=== PATIENT | male | born 1990 | race Caucasian/White ===

== ENCOUNTER 2016-12-11 08:52 | Emergency (ER) | payer BC, MEDICAID ==
--- NOTE | 2016-12-11 09:32 | EDM.PDOC ---
ED HPI GENERAL MEDICAL PROBLEM - General Chief Complaint: Drug or Alcohol Abuse Stated Complaint: CHEST PRESSURE Time Seen by Provider: 12/11/16 09:20 Source of Information: Reports: Patient, Old records History Limitations: Reports: No limitations - History of Present Illness INITIAL COMMENTS - FREE TEXT/NARRATIVE: 26 yo male presents with concerns that his heart is not beating normally. Denies any chest pains for me. Used meth last night, and has used this in the past many times as well. Was dizzy with standing and his urine was dark yellow this morning. 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) - Related Data Allergies Allergy/AdvReac Type Severity Reaction Status Date / Time No Known Allergies Allergy Verified 11/03/16 08:29 Home Meds: Home Meds ClonazePAM [KlonoPIN] 1 mg PO TID PRN 01/27/16 [History] FLUoxetine [PROzac] 20 mg PO DAILY 02/29/16 [History] Propranolol [Inderal LA] 120 mg PO DAILY 06/07/16 [History] Past Medical History - Past Health History Medical/Surgical History: Denies Medical/Surgical History HEENT History: Reports: Impaired vision Cardiovascular History: Reports: Heart murmur, Hypertension, Other (see below) Other Cardiovascular History: states has occ PVC's.; states that he was diagnosed having heart valve prolapse; LBBB Respiratory History: Reports: None Gastrointestinal History: Reports: None Genitourinary History: Reports: None Musculoskeletal History: Reports: None Neurological History: Reports: None Psychiatric History: Reports: Addiction, Anxiety, Depression, Panic attack, Psych Hospitalization(s) Endocrine/Metabolic History: Reports: None Hematologic History: Reports: None Immunologic History: Reports: None Oncologic (Cancer) History: Reports: None Dermatologic History: Reports: Other (see below) Other Dermatologic History: acne - Infectious Disease History Infectious Disease History: Reports: None - Past Surgical History Head Surgeries/Procedures: Reports: None Social & Family History - Family History Family Medical History: Noncontributory - Tobacco Use Smoking Status *Q: Current Some Day Smoker Years of Tobacco use: 7 Packs/Tins Daily: 0.1 - Caffeine Use Caffeine Use: Reports: Soda - Recreational Drug Use Recreational Drug Use: Yes Drug Use in Last 12 Months: No Recreational Drug Type: Reports: Amphetamines (Speed) Recreational Drug Use Frequency: Weekly ED ROS GENERAL - Review of Systems Review Of Systems: See Below Constitutional: Reports: no symptoms HEENT: Reports: No symptoms Respiratory: Reports: No Symptoms Cardiovascular: Reports: Other ("heart not beating right") GI/Abdominal: Reports: No symptoms : Reports: other (urine dark) Musculoskeletal: Reports: no symptoms Skin: Reports: no symptoms Neurological: Reports: No Symptoms Psychiatric: Reports: No symptoms ED EXAM, GENERAL - Physical Exam Exam: See Below Exam Limited By: No limitations General Appearance: alert, WD/WN, no apparent distress Eye Exam: bilateral eye: normal inspection, PERRL Ears: normal external exam, normal canal, hearing grossly normal, normal TMs Ear Exam: right ear: auricle normal, bilateral ear: canal normal, TM normal Nose: normal inspection, normal mucosa, no blood Throat/Mouth: Normal inspection, Normal lips, Normal teeth Head: atraumatic, normocephalic Neck: normal inspection, supple, non-tender Respiratory/Chest: no respiratory distress, lungs clear, normal breath sounds Cardiovascular: regular rate, rhythm, no edema GI/Abdominal: soft, non tender, no organomegaly, no distention Back Exam: normal inspection Extremities: normal inspection, normal range of motion, non-tender, no pedal edema Neurological: alert, oriented, CN II-XII intact, normal cognition, no motor/ sensory deficits Psychiatric: normal affect, normal mood Skin Exam: Warm, Dry, Intact, Normal color, No rash Lymphatic: no adenopathy Course - Vital Signs Text/Narrative:: pvc monitor: NSR without ectopy, HR in the upper 70's Last Recorded V/S: Last Vital Signs Temp 36.6 C 12/11/16 08:55 Pulse 78 12/11/16 08:55 Resp 18 12/11/16 08:55 BP 153/90 H 12/11/16 08:55 Pulse Ox 96 12/11/16 08:55 Departure - Departure Time of Disposition: 09:37 Disposition: Home, Self-Care 01 Condition: good Clinical Impression: Methamphetamine use HTN (hypertension) Qualifiers: Hypertension type: other secondary hypertension Qualified Code(s): I15.8 - Other secondary hypertension Referrals: Pelon Daniels MD [Primary Care Provider] - Forms: ED Department Discharge Additional Instructions: No methamphetamine use. F/U in the clinic if you have concerns or questions. Drink enough fluids so your urine is light in color. BP should be 120/80 range.
== END 2016-12-11 09:40 | disposition home or self-care (01) ==
LOC: FB.ED 08:52
CPT/HCPCS: 99284

== ENCOUNTER 2016-12-11 15:49 | Emergency (ER) | payer BC, MEDICAID ==
--- NOTE | 2016-12-11 16:12 | EDM.PDOC ---
ED HISTORY OF PRESENT ILLNESS - General Stated Complaint: WEAKNESS, BLOOD FLOW - Related Data Allergies/ADRs: Allergies Allergy/AdvReac Type Severity Reaction Status Date / Time No Known Allergies Allergy Verified 11/03/16 08:29 Home Meds: Home Meds ClonazePAM [KlonoPIN] 1 mg PO TID PRN 01/27/16 [History] FLUoxetine [PROzac] 20 mg PO DAILY 02/29/16 [History] Propranolol [Inderal LA] 120 mg PO DAILY 06/07/16 [History] Past Medical History - Past Health History Medical/Surgical History: Denies Medical/Surgical History HEENT History: Reports: Impaired vision Cardiovascular History: Reports: Heart murmur, Hypertension, Other (see below) Other Cardiovascular History: states has occ PVC's.; states that he was diagnosed having heart valve prolapse; LBBB Respiratory History: Reports: None Gastrointestinal History: Reports: None Genitourinary History: Reports: None Musculoskeletal History: Reports: None Neurological History: Reports: None Psychiatric History: Reports: Addiction, Anxiety, Depression, Panic attack, Psych Hospitalization(s) Endocrine/Metabolic History: Reports: None Hematologic History: Reports: None Immunologic History: Reports: None Oncologic (Cancer) History: Reports: None Dermatologic History: Reports: Other (see below) Other Dermatologic History: acne - Infectious Disease History Infectious Disease History: Reports: None - Past Surgical History Head Surgeries/Procedures: Reports: None Social & Family History - Family History Family Medical History: Noncontributory - Tobacco Use Smoking Status *Q: Current Some Day Smoker Years of Tobacco use: 7 Packs/Tins Daily: 0.1 - Caffeine Use Caffeine Use: Reports: Soda - Recreational Drug Use Recreational Drug Use: Yes Drug Use in Last 12 Months: No Recreational Drug Type: Reports: Amphetamines (Speed) Recreational Drug Use Frequency: Weekly EKG INTERPRETATION EKG Date: 12/11/16 Time: 16:05 Rhythm: NSR Rate (beats/min): 72 [place]: normal P-wave: present QRS: normal ST-T: normal QT: normal Comparison: no change Course - Orders/Labs/Meds Orders: Active Orders 24 hr Category Date Time Status EKG Documentation Completion [RC] ASDIRECTED Care 12/11/16 15:54 Active EKG 12 Lead [EK] Routine Ther 12/11/16 15:53 Ordered - My Orders Last 24 Hours: My Active Orders 12/11/16 15:53 EKG 12 Lead [EK] Routine 12/11/16 15:54 EKG Documentation Completion [RC] ASDIRECTED - Assessment/Plan Last 24 Hours: My Active Orders 12/11/16 15:53 EKG 12 Lead [EK] Routine 12/11/16 15:54 EKG Documentation Completion [RC] ASDIRECTED
[2016-12-11 17:37] VITALS: BP 120/73
== END 2016-12-11 16:15 | disposition left against medical advice (07) ==
LOC: FB.ED 15:49
DX: R53.1 Weakness (principal); F15.90 Other stimulant use, unspecified, uncomplicated; I15.8 Other secondary hypertension; R01.1 Cardiac murmur, unspecified; F32.9 Major depressive disorder, single episode, unspecified; F41.9 Anxiety disorder, unspecified; Z79.899 Other long term (current) drug therapy; Z53.21 Procedure and treatment not carried out due to patient leaving prior to being seen by health care provider
CPT/HCPCS: 93005; 99284

== ENCOUNTER 2016-12-15 11:41 | Emergency (ER) | payer BC, MEDICAID ==
[2016-12-15 15:30] VITALS: BP 116/67
--- NOTE | 2016-12-16 03:34 | ER ---
DATE SEEN: 12/15/2016 TIME SEEN: The patient was seen 15 minutes after arrival at 1204. HISTORY OF PRESENT ILLNESS: This 26-year-old noted he took 1 g of methamphetamine last night and was up all night with intermittent chest pain, diaphoresis, felt lightheaded, and feels a fullness in his chest. Feels like the chambers are not normal, they have been filled too much and feels like his lung is filling up with fluid. Denies headache, compromise in vision, or weakness. This is the second time I have seen him for the use of methamphetamine. He used other drugs extensively in the past. I have seen him on numerous occasions. Our staff note that his drug use is more extensive than he claims. He related to the nurse that he has used drugs daily. PHYSICAL EXAMINATION: VITAL SIGNS: Blood pressure 145/52, heart rate in the 90s, respirations 18, and temperature is 98.1. Repeat blood pressure 97/81. GENERAL: A tall mildly overweight fellow who is not particularly anxious, but is slightly weary of my conversation and what is going on. In fact, he feels he is having an out of body experience with his heart being high in his chest and also fullness in his lungs, feels like it is "filling up with fluid." HEENT: PERRLA intact. Pupils do react. TMs negative. Mildly dilated, 2.5 to 3 mm. Hearing intact. Pharynx without abnormality. LUNGS: Clear to auscultation without rales. HEART: S1, S2. No murmur. ABDOMEN: Soft. No guarding. No abdominal discomfort. EXTREMITIES: Without abnormality. DERMIS: Negative. No evidence for needle chase. LABORATORY DATA: EKG: There is a change in the EKG from the previous one. One was performed on 12/11/2016. This has a true flat ST on lead II. Today, there is up-coving which is more abnormal on V2 today. CO interval slightly short at 112; on last visit it was 111. Noted RSR prime V1 and V2 on 12/11/2016. On review of this EKG on 12/11/2016, there is RSR prime. There is no ST elevation today. He has an isoelectric T-wave in lead III that was absent on 12/11/2016. Chemical abuse history. Troponin less than 0.01. Total bilirubin 2.6. Glucose 120. Hemoglobin 17.9, hematocrit 53; both are elevated. Platelets 205,000, PMNs 62, lymphs 28, and monos 8. RDW slow at 11.2. ASSESSMENT: 1. Possible hepatitis with elevated bilirubin. The liver enzymes were not elevated. Alkaline phosphatase is not elevated, it is 54, it is low. 2. Abnormal EKG with today borderline CO short interval of 112 microseconds. 3. Flattened T-waves, isoelectric in lead III. No ST elevation today. The patient has a right bundle-branch block. On 12/11/2016, he had an ST elevation in lead III. Today, he no longer has the T-wave inversion on V1, but on 12/11/2016 had a large T-wave inversion in V1. 4. Drug abuse. 5. Panic attacks. The patient to continue his medicine. No changes in his medicine. Follow up with doctor in a week or earlier if worse. Also, he is to get a psychiatric consult. Needs to be arranged with either [facility], but he says he "wants to do this on his own." I am not sure what this means. That may mean he is not planning on doing anything. I am not hopeful of the outcome and I am not hopeful about the chronic recurrent use of these drugs and what they are going to do to his system, as he is at risk for myocardial infarction if he continues to escalate his drug use. /[id number] TIBURCIO CABEZAS
--- NOTE | 2017-01-07 09:14 | ER ---
DATE SEEN: 12/15/2016 ADDENDUM: History significant for chemical abuse. REVIEW OF SYSTEMS: HEENT, CARDIORESPIRATORY, GI, : Negative. MUSCULOSKELETAL: Negative. PSYCHIATRIC: Significant for depression, intermittent drug abuse, and panic attacks. PAST MEDICAL HISTORY: No diabetes, heart disease, high blood pressure, serious injuries or surgeries. /[id number] LEIDY/CHRISTIAN
== END 2016-12-15 13:10 | disposition home or self-care (01) ==
LOC: FB.ED 11:41
DX: F15.10 Other stimulant abuse, uncomplicated (principal); F41.0 Panic disorder [episodic paroxysmal anxiety]; R94.31 Abnormal electrocardiogram [ECG] [EKG]
CPT/HCPCS: 36415; 80053; 84484; 85025; 93005; 99285

== ENCOUNTER 2016-12-16 04:02 | Emergency (ER) | payer BC, MEDICAID ==
[2016-12-16] MEDS ORDERED: LORazepam 2 MG/ML MDV IVPUSH ONE (04:25)
[2016-12-16] MEDS ORDERED: HYDROmorphone 2 MG/ML SDV IVPUSH ONE (04:26)
--- NOTE | 2016-12-16 05:38 | EDM.PDOC ---
ED HPI NEURO - General Chief Complaint: Behavioral/Psych Stated Complaint: CHEST PRESSURE Time Seen by Provider: 12/16/16 05:00 Source: Reports: Patient, Old records History Limitations: Reports: No limitations - History of Present Illness INITIAL COMMENTS - FREE TEXT/NARRATIVE: 26 yo male with chest pressure and recurrent methamphetamine use. Is anxious. Has been here several times in recent weeks. 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) - Related Data Allergies/ADRs: Allergies Allergy/AdvReac Type Severity Reaction Status Date / Time No Known Allergies Allergy Verified 12/15/16 15:27 Home Meds: Home Meds ClonazePAM [KlonoPIN] 1 mg PO TID PRN 01/27/16 [History] FLUoxetine [PROzac] 20 mg PO DAILY 02/29/16 [History] Propranolol [Inderal LA] 120 mg PO DAILY 06/07/16 [History] Past Medical History - Past Health History Medical/Surgical History: Denies Medical/Surgical History HEENT History: Reports: Impaired vision Cardiovascular History: Reports: Heart murmur, Hypertension, Other (see below) Other Cardiovascular History: states has occ PVC's.; states that he was diagnosed having heart valve prolapse; LBBB Respiratory History: Reports: None Gastrointestinal History: Reports: None Genitourinary History: Reports: None Musculoskeletal History: Reports: None Neurological History: Reports: None Psychiatric History: Reports: Addiction, Anxiety, Depression, Panic attack, Psych Hospitalization(s) Endocrine/Metabolic History: Reports: None Hematologic History: Reports: None Immunologic History: Reports: None Oncologic (Cancer) History: Reports: None Dermatologic History: Reports: Other (see below) Other Dermatologic History: acne - Infectious Disease History Infectious Disease History: Reports: None - Past Surgical History Head Surgeries/Procedures: Reports: None Social & Family History - Family History Family Medical History: Noncontributory - Tobacco Use Smoking Status *Q: Current Some Day Smoker Years of Tobacco use: 10 Packs/Tins Daily: 0 - Caffeine Use Caffeine Use: Reports: Soda - Recreational Drug Use Recreational Drug Use: Yes Drug Use in Last 12 Months: Yes Recreational Drug Type: Reports: Methamphetamine Recreational Drug Use Frequency: Daily ED ROS GENERAL - Review of Systems Review Of Systems: See Below Constitutional: Reports: no symptoms HEENT: Reports: No symptoms Respiratory: Reports: No Symptoms Cardiovascular: Reports: No symptoms Endocrine: Reports: no symptoms GI/Abdominal: Reports: No symptoms : Reports: no symptoms Musculoskeletal: Reports: no symptoms Skin: Reports: no symptoms Neurological: Reports: No Symptoms Psychiatric: Reports: Anxiety ED EXAM, NEURO - Physical Exam Exam: See Below Exam Limited By: No limitations General Appearance: alert, WD/WN, no apparent distress Eye Exam: bilateral eye: normal inspection Ears: normal external exam, normal canal, hearing grossly normal, normal TMs Nose: normal inspection, normal mucosa, no blood Throat/Mouth: Normal inspection, Normal lips, Normal teeth, Normal oropharynx, Normal voice, No airway compromise Head Exam: atraumatic, normocephalic Neck: normal inspection, supple, non-tender Respiratory/Chest: no respiratory distress, lungs clear, normal breath sounds, no accessory muscle use Cardiovascular: regular rate, rhythm, no edema GI/Abdominal: normal bowel sounds, soft, non tender, no distention Neurological: alert, normal mood/affect, normal dorsiflexion, CN II-XII intact, normal plantar flexion, normal gait, no motor/sensory deficits, oriented x 3 Back Exam: normal inspection Extremities: normal inspection, normal range of motion, non-tender, no pedal edema, normal capillary refill Psychiatric: anxious Skin Exam: Warm, Dry, Intact, Normal color, No rash EKG INTERPRETATION EKG Date: 12/16/16 Time: 05:35 Rhythm: NSR Rate (beats/min): 78 [place]: normal P-wave: present QRS: normal ST-T: normal QT: normal Comparison: no change Course - Vital Signs Text/Narrative:: Was offered detox/drug treatment-declined. Last Recorded V/S: Last Vital Signs Temp 36.9 C 12/16/16 06:38 Pulse 82 12/16/16 06:38 Resp 18 12/16/16 06:38 BP 162/91 H 12/16/16 06:38 Pulse Ox 100 12/16/16 06:38 - Orders/Labs/Meds Orders: Active Orders 24 hr Category Date Time Status EKG Documentation Completion [RC] ASDIRECTED Care 12/16/16 05:16 Active EKG 12 Lead [EK] Routine Ther 12/16/16 05:15 Ordered Labs: Laboratory Tests 12/16/16 12/16/16 Range/Units 05:25 05:43 Troponin I < 0.01 L (0.02-0.06) NG/ML Urine Opiates Screen Negative (NEGATIVE) Ur Oxycodone Screen Negative (NEGATIVE) Ur Propoxyphene Screen Negative (NEGATIVE) Ur Barbituates Screen Negative (NEGATIVE) Ur Tricyclics Screen Negative (NEGATIVE) Ur Phencyclidine Scrn Negative (NEGATIVE) Ur Amphetamine Screen Positive H (NEGATIVE) Urine MDMA Screen Positive H (NEGATIVE) U Benzodiazepines Scrn Negative (NEGATIVE) U Cocaine Metab Screen Negative (NEGATIVE) U Marijuana (THC) Screen Negative (NEGATIVE) Departure - Departure Time of Disposition: 06:58 Disposition: Home, Self-Care 01 Condition: fair Clinical Impression: Methamphetamine abuse, Anxiety Forms: ED Department Discharge - My Orders Last 24 Hours: My Active Orders 12/16/16 05:15 EKG 12 Lead [EK] Routine 12/16/16 05:16 EKG Documentation Completion [RC] ASDIRECTED - Assessment/Plan Last 24 Hours: My Active Orders 12/16/16 05:15 EKG 12 Lead [EK] Routine 12/16/16 05:16 EKG Documentation Completion [RC] ASDIRECTED
[2016-12-16 06:39] VITALS: BP 162/91
== END 2016-12-16 07:47 | disposition home or self-care (01) ==
LOC: FB.ED 04:02
DX: F41.9 Anxiety disorder, unspecified (principal); F15.10 Other stimulant abuse, uncomplicated; F32.9 Major depressive disorder, single episode, unspecified; I10 Essential (primary) hypertension
CPT/HCPCS: 36415; 80305; 84484; 93005; 99283

== ENCOUNTER 2016-12-18 12:21 | Emergency (ER) | payer BC, MEDICAID ==
--- NOTE | 2016-12-18 13:26 | EDM.PDOC ---
ED HPI GENERAL MEDICAL PROBLEM - General Chief Complaint: General Stated Complaint: DISORIENTED Time Seen by Provider: 12/18/16 12:50 Source of Information: Reports: Patient History Limitations: Reports: No limitations - History of Present Illness INITIAL COMMENTS - FREE TEXT/NARRATIVE: c/o anxiety long litany of c/o around his anxiety, has been seen multiple times in ED and advised to see his PCP Dr Mcpherson, each time he has refused as he did today, he said "if you tell me I'm fine, then I'm fine". I said "no, you are not fine" . I explained why he needed to see his PCP regarding his chronic health issues ( anxiety, PA, somatization, substance use). Each time he refused and said he would not. He said he did not dislike his PCP, just that he saw no need regardless of what I or any other ED doc recommended. Yet, he says he could not sleep last 3 nights d/t his anxiety. He has stopped his clonidine 2d ago ("because my SBP was 90) even though I explained that it is fine today. He stopped his propanolol 2d ago. He has continued his Prozac 20 mg daily which he says is the only thing that has calmed his anxiety enough to let him leave his house. 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 I explained that his PCP could adjust his meds to better help his anxiety, including increasing his Prozac if needed. He still refused to see PCP. last used meth 2d ago, says he is "a user but not addicted", that he smoked 2 ppd and now smokes 2 cigs/d, I explained that he was addicted and that his sxs today are in part d/t his substance use, pt disagreed drinks alc 1x/wk, no THC, has used other drugs in the past but would not tell me what they are sxs are his anxiety and insomnia, no clearcut efrain, no SI/HI - Related Data Allergies Allergy/AdvReac Type Severity Reaction Status Date / Time No Known Allergies Allergy Verified 12/18/16 12:36 Home Meds: Home Meds ClonazePAM [KlonoPIN] 1 mg PO TID PRN 01/27/16 [History] FLUoxetine [PROzac] 20 mg PO DAILY 02/29/16 [History] Propranolol [Inderal LA] 120 mg PO DAILY 06/07/16 [History] Past Medical History - Past Health History Medical/Surgical History: Denies Medical/Surgical History HEENT History: Reports: Impaired vision Cardiovascular History: Reports: Heart murmur, Hypertension, Other (see below) Other Cardiovascular History: states has occ PVC's.; states that he was diagnosed having heart valve prolapse; LBBB Respiratory History: Reports: None Gastrointestinal History: Reports: None Genitourinary History: Reports: None Musculoskeletal History: Reports: None Neurological History: Reports: None Psychiatric History: Reports: Addiction, Anxiety, Depression, Panic attack, Psych Hospitalization(s) Endocrine/Metabolic History: Reports: None Hematologic History: Reports: None Immunologic History: Reports: None Oncologic (Cancer) History: Reports: None Dermatologic History: Reports: Other (see below) Other Dermatologic History: acne - Infectious Disease History Infectious Disease History: Reports: None - Past Surgical History Head Surgeries/Procedures: Reports: None Social & Family History - Family History Family Medical History: Noncontributory - Tobacco Use Smoking Status *Q: Current Some Day Smoker Years of Tobacco use: 2 Packs/Tins Daily: 0 Tobacco Use Comment: smokes a few cigarettes a week Second Hand Smoke Exposure: No - Caffeine Use Caffeine Use: Reports: Soda - Recreational Drug Use Recreational Drug Use: Yes Drug Use in Last 12 Months: Yes Recreational Drug Type: Reports: Methamphetamine Recreational Drug Use Frequency: Daily ED ROS GENERAL - Review of Systems Review Of Systems: See Below Constitutional: Reports: other (insomnia) HEENT: Reports: No symptoms Respiratory: Reports: No Symptoms Cardiovascular: Reports: No symptoms Endocrine: Reports: no symptoms GI/Abdominal: Reports: No symptoms : Reports: no symptoms Musculoskeletal: Reports: no symptoms Skin: Reports: no symptoms Neurological: Reports: No Symptoms Psychiatric: Reports: Anxiety Hematologic/Lymphatic: Reports: no symptoms Immunologic: Reports: no symptoms ED EXAM, GENERAL - Physical Exam Exam: See Below Exam Limited By: No limitations General Appearance: alert, WD/WN, anxious Eye Exam: bilateral eye: EOMI Ears: normal external exam, hearing grossly normal Nose: normal inspection, normal mucosa, no blood Throat/Mouth: Normal inspection, Normal lips, Normal teeth, Normal gums, Normal oropharynx, Normal voice, No airway compromise Head: atraumatic, normocephalic Neck: normal inspection, supple, non-tender, full range of motion Respiratory/Chest: no respiratory distress, lungs clear, normal breath sounds, no accessory muscle use, chest non-tender Cardiovascular: normal peripheral pulses, regular rate, rhythm, no edema, no gallop, no murmur, no rub GI/Abdominal: soft, non tender Back Exam: normal inspection, full range of motion, NT Extremities: normal inspection, normal range of motion, non-tender, normal capillary refill, no pedal edema Neurological: alert, oriented, CN II-XII intact, normal reflexes, no motor/ sensory deficits, other (1+ bicep and BR DTRs, no gross tremor) Psychiatric: anxious Skin Exam: Warm, Dry, Intact, Normal color, No rash Lymphatic: no adenopathy Course - Vital Signs Last Recorded V/S: Last Vital Signs Temp 37.1 C 12/18/16 12:47 Pulse 80 12/18/16 12:47 Resp 18 12/18/16 12:47 BP 135/88 12/18/16 12:47 Pulse Ox 100 12/18/16 12:47 Departure - Departure Time of Disposition: 13:28 Disposition: DC/Tfer to [facility] Condition: fair Clinical Impression: Anxiety, Panic attack, Methamphetamine abuse, Noncompliance with medications Forms: ED Department Discharge Additional Instructions: Take your clonidine, propranolol and Prozac as prescribed. Eat 3 meals a day. Get regular sleep at night. Do not use methamphetamine or other street drugs. See Dr Mcpherson in 2 days. Do not put off seeing Dr Mcpherson. Call your Physician or Return to Emergency Department if: * Your condition worsens in any way. * You develop fever greater than 100.4. * You have vomitting that does not stop with medications. * You have pain that is not controlled with medications.
== END 2016-12-18 13:35 | disposition home or self-care (01) ==
LOC: FB.ED 12:21
CPT/HCPCS: 99283

== ENCOUNTER 2017-01-06 23:13 | Emergency (ER) | payer BC ==
--- NOTE | 2017-01-07 | EDM.PDOC ---
ED HPI Skin/Rash - General Chief Complaint: Skin Complaint Stated Complaint: POSS BLOOD CLOT Time Seen by Provider: 01/06/17 23:45 Source: Reports: Patient History Limitations: Reports: No limitations - History of Present Illness INITIAL COMMENTS - FREE TEXT/NARRATIVE: 26 yo male regular methamphetamine user presents with bruising he noticed to his R lateral leg earlier today. Did not see his provider, but decided tonight these may represent "blood clots" since he had sat around all day today. Last used meth yesterday. Symptom Onset Date: 01/06/17 (noticed the bruises today, may have been there longer. 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: Other (see below) (none) - Related Data Allergies Allergy/AdvReac Type Severity Reaction Status Date / Time No Known Allergies Allergy Verified 12/18/16 12:36 Home Meds: Ambulatory Orders Medication Instructions Recorded Confirmed ClonazePAM [KlonoPIN] 1 mg PO TID PRN 01/27/16 12/18/16 FLUoxetine [PROzac] 20 mg PO DAILY 02/29/16 12/18/16 Propranolol [Inderal LA] 120 mg PO DAILY 06/07/16 12/18/16 Past Medical History - Past Health History Medical/Surgical History: Denies Medical/Surgical History HEENT History: Reports: Impaired vision Cardiovascular History: Reports: Heart murmur, Hypertension, Other (see below) Other Cardiovascular History: states has occ PVC's.; states that he was diagnosed having heart valve prolapse; LBBB Respiratory History: Reports: None Gastrointestinal History: Reports: None Genitourinary History: Reports: None Musculoskeletal History: Reports: None Neurological History: Reports: None Psychiatric History: Reports: Addiction, Anxiety, Depression, Panic attack, Psych Hospitalization(s) Endocrine/Metabolic History: Reports: None Hematologic History: Reports: None Immunologic History: Reports: None Oncologic (Cancer) History: Reports: None Dermatologic History: Reports: Other (see below) Other Dermatologic History: acne - Infectious Disease History Infectious Disease History: Reports: None - Past Surgical History Head Surgeries/Procedures: Reports: None Social & Family History - Family History Family Medical History: Noncontributory - Tobacco Use Smoking Status *Q: Current Some Day Smoker Years of Tobacco use: 2 Packs/Tins Daily: 0 Second Hand Smoke Exposure: No - Caffeine Use Caffeine Use: Reports: Soda - Recreational Drug Use Recreational Drug Use: Yes Drug Use in Last 12 Months: Yes Recreational Drug Type: Reports: Methamphetamine Recreational Drug Use Frequency: Daily ED ROS GENERAL - Review of Systems Review Of Systems: See Below Constitutional: Reports: no symptoms HEENT: Reports: No symptoms Respiratory: Reports: No Symptoms Cardiovascular: Reports: No symptoms Endocrine: Reports: no symptoms GI/Abdominal: Reports: No symptoms : Reports: no symptoms Musculoskeletal: Reports: no symptoms Skin: Reports: bruising (R lateral thigh and leg.) Neurological: Reports: No Symptoms ED EXAM, SKIN/RASH Exam: See Below Exam Limited By: No limitations General Appearance: alert, WD/WN, no apparent distress Eye Exam: bilateral eye: normal inspection, PERRL Ears: normal external exam, normal canal, hearing grossly normal Nose: normal inspection, normal mucosa, no blood Throat/Mouth: Normal inspection, Normal lips, Normal teeth, Normal gums, Normal oropharynx, Normal voice, No airway compromise Head: atraumatic, normocephalic Neck: normal inspection Respiratory/Chest: no respiratory distress, lungs clear, normal breath sounds, no accessory muscle use Cardiovascular: regular rate, rhythm, no edema, no gallop, no murmur, no rub GI/Abdominal: normal bowel sounds, soft, non tender, no distention Back Exam: normal inspection, full range of motion, NT Extremities: normal inspection, normal range of motion, non-tender, no pedal edema, normal capillary refill. No: pedal edema, Charisma's Sign, leg pain, limited range of motion, redness Neurological: alert, oriented, CN II-XII intact, normal cognition, no motor/ sensory deficits Psychiatric: normal affect, normal mood Skin: Warm, Dry, Intact, Normal color, No rash, Other (small bruises to R lateral thigh and leg, appear several days old.) Location, Skin: lower extremity, right Characteristics: other (small bruises.) Lymphatic: no adenopathy Course - Vital Signs Last Recorded V/S: Last Vital Signs Temp 36.8 C 01/06/17 23:32 Pulse 70 01/06/17 23:32 Resp 18 01/06/17 23:32 BP 155/109 H 01/06/17 23:32 Pulse Ox 100 01/06/17 23:32 Departure - Departure Time of Disposition: 00:05 Disposition: Home, Self-Care 01 Condition: good Clinical Impression: Bruising Referrals: Pelon Daniels MD [Primary Care Provider] - Forms: ED Department Discharge Additional Instructions: No methamphetamine use. See your doctor for further testing.
[2017-01-07 00:37] VITALS: BP 157/97
== END 2017-01-07 00:15 | disposition home or self-care (01) ==
LOC: FB.ED 23:13
DX: S80.11XA Contusion of right lower leg, initial encounter (principal); F41.0 Panic disorder [episodic paroxysmal anxiety]; F32.9 Major depressive disorder, single episode, unspecified; F17.210 Nicotine dependence, cigarettes, uncomplicated; Z79.899 Other long term (current) drug therapy
CPT/HCPCS: 99282

== ENCOUNTER 2017-01-07 22:32 | Emergency (ER) | payer BC ==
[2017-01-07 23:02] VITALS: BP 170/99
[2017-01-07] MEDS ORDERED: Pantoprazole 40 MG Vial IVPUSH ONE (23:22)
[2017-01-07] MEDS ORDERED: Sodium Chloride 0.9% 1,000 ML IV SCH (23:30)
[2017-01-08] MEDS ORDERED: OLANZapine 10 MG in Water For Injection, Sterile 2.1 ML IM ONE ×2 (00:10→00:34)
[2017-01-08] MEDS ORDERED: Glucagon,Human Recombinant 1 MG Vial IM ONE (01:00)
[2017-01-08] MEDS ORDERED: LORazepam 2 MG/ML MDV IM ONE (01:06)
--- NOTE | 2017-01-08 12:11 | CR ---
INDICATION: Swallowed dollar bill, as police apprehended him. Vomited blood after swallowing dollar bill. CHEST: An AP stretcher view of the chest was obtained upright 01/07/2017. It was limited in that the right costophrenic angle was not fully included on the study. It is compared with 02/29/2016. Overlying EKG leads are noted. Heart, mediastinum, and bony thorax were essentially unremarkable, except for question of a very minimal dextroconcave scoliosis at the lower thoracic spine. This may be positional, however. A definite consolidating pneumonia or effusion was not identified. IMPRESSION: No acute process. MTDD
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
== END 2017-01-08 02:50 ==
LOC: FB.ED 22:32
DX: F43.10 Post-traumatic stress disorder, unspecified (principal); F41.9 Anxiety disorder, unspecified; S80.11XA Contusion of right lower leg, initial encounter; F41.0 Panic disorder [episodic paroxysmal anxiety]; F32.9 Major depressive disorder, single episode, unspecified; F17.210 Nicotine dependence, cigarettes, uncomplicated; Z79.899 Other long term (current) drug therapy
CPT/HCPCS: 36415; 71010; 80053; 80305; 81001; 84484; 85025; 85379; 85610; 85730; 96372; 99282; 99284; C9113; G0480; J2060; J7040; 96361; 96374; S0166

== ENCOUNTER 2017-01-14 08:24 | Day surgery (SDC) | payer BC, MEDICAID ==
[2017-01-14] MEDS ORDERED: Sodium Chloride 0.9% 10 ML Syringe FLUSH PRN (08:30)
[2017-01-14] MEDS ORDERED: Lactated Ringers 1,000 ML IV SCH (08:30)
[2017-01-14] MEDS ORDERED: Lidocaine 2% 100 MG/5 ML Syringe IVPUSH ONE (10:20)
[2017-01-14] MEDS ORDERED: Midazolam 1 MG/ML 2 ML SDV IV ONE (10:20)
[2017-01-14] MEDS ORDERED: Propofol 200 MG/20 ML SDV IV ONE (10:20)
--- NOTE | 2017-01-14 10:45 | PCM.OPNOTE ---
- General Post-Op/Procedure Note Date of Surgery/Procedure: 01/14/17 Operative Procedure(s): egd with removal of foreign body esopahgus. bx of duodenum and stomach. Findings: folded $5 bill in esophagus mucosal tear duodenitis gastritis Pre Op Diagnosis: dysphagia Post-Op Diagnosis: folded $5 bill in esophagus. mucosal tear. duodenitis. gastritis Anesthesia Technique: [facility] Primary Surgeon: Regino Purdy Anesthesia Provider: Shin Mas Complications: None Condition: Good Free Text/Narrative:: see dictation
[2017-01-14 11:34] VITALS: BP 128/77
--- NOTE | 2017-01-14 11:38 | PCM.SN ---
- Free Text/Narrative Note: CT scan with contrast demonstrates no leak or pooling.
--- NOTE | 2017-01-14 13:56 | CT ---
INDICATION: Extracted foreign body from mid esophagus, question leak in esophagus. 5-dollar bill had been retained for over a week. CT CHEST WITH ORAL CONTRAST: Spiral 2.5-mm axial sections were obtained through the chest with oral contrast only, continuously drinking, and revealed fairly good visualization of the esophagus without evidence of an extravasation into the mediastinum of the oral contrast. No mediastinal masses were identified. A definite active infiltrate or effusion was not seen. Bony structures appear to be grossly intact. IMPRESSION: No evidence of esophageal fistula due to retained foreign body near the area of the matt. Report was given in person to Dr. Purdy at 1136 hours, 01/14/2017. Total Exam DLP = 411.97 mGy-cm. MTDD
--- NOTE | 2017-01-14 14:31 | OR ---
DATE OF OPERATION: 01/14/2017 SURGEON: Regino Purdy MD PROCEDURE PERFORMED: Esophagogastroduodenoscopy with removal of foreign body from esophagus as well as biopsy of the duodenum and the stomach. PREOPERATIVE DIAGNOSIS: Dysphagia. POSTOPERATIVE DIAGNOSIS: Foreign body of esophagus which was apparent mucosal tear gastric duodenitis. INDICATIONS FOR PROCEDURE: This is a 26-year-old white male, who apparently swallowed some folded 5 dollar bill over week ago including some drug paraphernalia. According to the patient, had some episodes of hematemesis, apparently was seen in the emergency room and admitted or transferred to [place] for treatment for methamphetamine use. This was over a week ago. He has had subsequent issues with swallowing and been unable to the eat and has had persistent nausea and vomiting. He was offered and accepted an EGD. DESCRIPTION OF OPERATION: After an excellent IV sedation was administered, the bite block was inserted. The flexible endoscope was passed without difficulty down the patient's esophagus. Approximately midway down, the folded 5 dollar bill was encountered. This was grasped with the biopsy forceps and gently delivered out through the esophagus and mouth. We were able to reinsert the scope into the stomach and advanced through the pylorus. The following findings were noted in the duodenum and the stomach, especially in the area of the antrum, there were areas of irritation. We did do several biopsies with cold biopsy forceps. Coming back to the scope or the area where the dollar bill was, the mucosa appeared to be irritated with a rent. I did not see any obvious perforations and clinically, the patient does not have any evidence of perforation or esophageal leak. No biopsies were taken as our fluoro machine is down, will be obtaining a CT scan with oral contrast to look for a leak. The patient tolerated the procedure well and was taken to recovery. /[id number] /MODL
== END 2017-01-14 12:15 | disposition home or self-care (01) ==
LOC: FB.SDS 08:24
PROVIDERS: ATTEND Surgery
DX: T18.198A Other foreign object in esophagus causing other injury, initial encounter (principal); K29.80 Duodenitis without bleeding; K29.50 Unspecified chronic gastritis without bleeding; Z79.899 Other long term (current) drug therapy; Z87.891 Personal history of nicotine dependence
CPT/HCPCS: 43239; 43247; 71250; 88305; 88342; J2250; J2704; J7120

== ENCOUNTER 2017-02-10 14:23 | Emergency (ER) | payer BC ==
--- NOTE | 2017-02-10 14:53 | EDM.PDOC ---
ED HPI GENERAL MEDICAL PROBLEM - General Stated Complaint: LOWER STOMACH PAIN Time Seen by Provider: 02/10/17 14:23 Source of Information: Reports: Patient, Family History Limitations: Reports: No Limitations - History of Present Illness INITIAL COMMENTS - FREE TEXT/NARRATIVE: 26 y.o.w.m -uses drugs daily-came to the ed with his grandma due to pain at his r flank, left and right lower abd. Pt has no discomfort ambulating. No N/ of dizziness. No Trauma. No other acute medical issues. Pt was seen here in the past for same. Onset Date: 02/06/17 Onset Time: 07:00 Duration: Day(s):, Intermittent Location: Reports: Abdomen Quality: Reports: Pressure Severity: Mild Improves with: Reports: None Worsens with: Reports: None Context: Reports: Other (pt lives with his grandma, unemployed ) Associated Symptoms: Reports: No Other Symptoms Midsternal chest & lower abdomen Pain Score (Numeric/FACES): 6 - Related Data Allergies Allergy/AdvReac Type Severity Reaction Status Date / Time No Known Allergies Allergy Verified 01/07/17 22:35 Home Meds: Home Meds FLUoxetine [PROzac] 40 mg PO DAILY 02/29/16 [History] Omeprazole 20 mg PO DAILY 01/13/17 [History] Sucralfate [Carafate] 1 gm PO ACBED #28 tab 01/14/17 [Rx] Past Medical History - Past Health History Medical/Surgical History: Denies Medical/Surgical History HEENT History: Reports: Impaired Vision Cardiovascular History: Reports: Heart Murmur, Hypertension, Other (See Below) Other Cardiovascular History: states has occ PVC's.; states that he was diagnosed having heart valve prolapse; LBBB Respiratory History: Reports: None Gastrointestinal History: Reports: None Genitourinary History: Reports: None Musculoskeletal History: Reports: None Neurological History: Reports: None Psychiatric History: Reports: Addiction, Anxiety, Depression, Panic Attack, Psych Hospitalization(s) Endocrine/Metabolic History: Reports: None Hematologic History: Reports: None Immunologic History: Reports: None Oncologic (Cancer) History: Reports: None Dermatologic History: Reports: Other (See Below) Other Dermatologic History: acne - Infectious Disease History Infectious Disease History: Reports: Chicken Pox - Past Surgical History Head Surgeries/Procedures: Reports: None Social & Family History - Family History Family Medical History: Noncontributory - Tobacco Use Smoking Status *Q: Former Smoker Years of Tobacco use: 10 Packs/Tins Daily: 0.2 Used Tobacco, but Quit: Yes Month Tobacco Last Used: ONE YEAR AGO Second Hand Smoke Exposure: No - Caffeine Use Caffeine Use: Reports: None - Recreational Drug Use Recreational Drug Use: Yes Drug Use in Last 12 Months: Yes Recreational Drug Type: Reports: Methamphetamine Other Recreational Drug Type: states he used methamphetamine yesterday Recreational Drug Use Frequency: Daily Recreational Drug Last Use: 01/12/17 ED ROS GENERAL - Review of Systems Review Of Systems: See Below Constitutional: Reports: No Symptoms HEENT: Reports: No Symptoms Respiratory: Reports: No Symptoms Cardiovascular: Reports: Chest Pain Endocrine: Reports: No Symptoms GI/Abdominal: Reports: Other (lower abd.pain) : Reports: No Symptoms Musculoskeletal: Reports: No Symptoms, Neck Pain Skin: Reports: No Symptoms Neurological: Reports: No Symptoms Psychiatric: Reports: No Symptoms Hematologic/Lymphatic: Reports: No Symptoms Immunologic: Reports: No Symptoms ED EXAM, GI/ABD - Physical Exam Exam: See Below Exam Limited By: Uncooperative (pt's urine was very dilute, possible diluted with water) General Appearance: Alert, WD/WN, No Apparent Distress, Mild Distress Eyes: Bilateral: Normal Appearance Ears: Normal External Exam Nose: Normal Inspection Throat/Mouth: Normal Inspection Head: Atraumatic, Normocephalic Neck: Normal Inspection, Supple, Non-Tender, Full Range of Motion Respiratory/Chest: No Respiratory Distress, Lungs Clear, Normal Breath Sounds, No Accessory Muscle Use, Chest Non-Tender Cardiovascular: Normal Peripheral Pulses, Regular Rate, Rhythm, No Edema, No Gallop, No JVD, No Murmur, No Rub GI/Abdominal: Normal Bowel Sounds, Soft, Non-Tender, No Organomegaly, No Distention (Male) Exam: No Hernia, Normal Inspection, Deferred Rectal (Males) Exam: Deferred Back Exam: Normal Inspection, Full Range of Motion Extremities: Normal Inspection, Normal Range of Motion, Non-Tender, No Pedal Edema, Normal Capillary Refill Neurological: Alert, Oriented, CN II-XII Intact, Normal Cognition, Normal Gait, No Motor/Sensory Deficits Psychiatric: Depressed Mood Skin Exam: Warm, Dry, Intact, Normal Color, No Rash Lymphatic: No Adenopathy EKG INTERPRETATION EKG Date: 02/10/17 Time: 14:50 Rhythm: NSR Rate (beats/min): 77 [place]: normal P-wave: present QRS: normal ST-T: normal QT: normal Comparison: NA - no prior EKG Course - Vital Signs Text/Narrative:: 26 y.o.w.m -uses drugs daily-came to the ed with his grandma due to pain at his r flank, left and right lower abd. Pt has no discomfort ambulating. No N/ of dizziness. No Trauma. No other acute medical issues. Pt was seen here in the past for same. Stool was hard(?) PE: Normal Physical exam Labs: CBC, BMP were nl. His urine appeared very dilute with a pH of 8.0, UDS was "pseud neg" Pt stated he is using drugs daily. Urine may be too dilute to gat acute testing. Pt refused an in and out catheter and refused to void in a cup while attended by the staff. Imaging: Abd. NAD ECG: Nl SR Impression H/O amphetamin use, noncompliance. Reexam: Pt is ambulating fine and does not appear in any discomfort\\ Plan: D/C with grandma. Last Recorded V/S: Last Vital Signs Temp 36.6 C 02/10/17 16:24 Pulse 77 02/10/17 16:24 Resp 14 02/10/17 16:24 BP 128/87 02/10/17 16:24 Pulse Ox 97 02/10/17 16:24 - Orders/Labs/Meds Orders: Active Orders 24 hr Category Date Time Status Abdomen 2V AP Flat Upright [CR] Stat Exams 02/10/17 15:31 Taken EKG 12 Lead [EK] Routine Ther 02/10/17 14:47 Ordered Labs: Laboratory Tests 02/10/17 02/10/17 02/10/17 Range/Units 14:30 14:30 15:00 WBC 7.5 (4.5-12.0) X10-3/uL RBC 5.02 (4.30-5.75) x10(6)uL Hgb 16.2 H (11.5-15.5) g/dL Hct 47.0 (30.0-51.3) % MCV 93.8 (80-96) fL MCH 32.4 (27.7-33.6) pg MCHC 34.5 (32.2-35.4) g/dL RDW 12.4 (11.5-15.5) % Plt Count 172 (125-369) X10(3)uL MPV 9.9 (7.4-10.4) fL Neut % (Auto) 65.6 (46-82) % Lymph % (Auto) 22.7 (13-37) % [place] % (Auto) 7.6 (4-12) % Eos % (Auto) 4 (1.0-5.0) % Baso % (Auto) 1 (0-2) % Neut # (Auto) 4.9 (1.6-8.3) # Lymph # (Auto) 1.7 (0.6-5.0) # [place] # (Auto) 0.6 (0.0-1.3) # Eos # (Auto) 0.3 (0.0-0.8) # Baso # (Auto) 0.0 (0.0-0.2) # Sodium (135-145) mmol/L Potassium (3.5-5.3) mmol/L Chloride (100-110) mmol/L Carbon Dioxide (23-29) mmol/L BUN (5-20) mg/dL Creatinine (0.6-1.3) mg/dL Est Cr Clr Drug Dosing mL/min Estimated GFR (MDRD) (>60) BUN/Creatinine Ratio (9-20) Glucose (80-116) mg/dL Calcium (8.6-10.2) mg/dL Creatine Kinase (60-160) IU/L Troponin I (0.02-0.06) NG/ML Urine Color Yellow (YELLOW) Urine Appearance Clear (CLEAR) Urine pH 8.0 H (5.0-6.5) Ur Specific [place] 1.010 (1.010-1.025) Urine Protein Negative (NEGATIVE) mg/dL Urine Glucose (UA) Normal (NEGATIVE) mg/dL Urine Ketones Negative (NEGATIVE) mg/dL Urine Occult Blood Negative (NEGATIVE) Urine Nitrite Negative (NEGATIVE) Urine Bilirubin Negative (NEGATIVE) Urine Urobilinogen Normal (NEGATIVE) mg/dL Ur Leukocyte Esterase Negative (NEGATIVE) Urine RBC Not seen (0) Urine WBC 0-5 (0) Ur Squamous Epith Cells Rare (NS,R,O) Urine Bacteria Rare H (NS) Urine Opiates Screen Negative (NEGATIVE) Ur Oxycodone Screen Negative (NEGATIVE) Ur Propoxyphene Screen Negative (NEGATIVE) Ur Barbituates Screen Negative (NEGATIVE) Ur Tricyclics Screen Negative (NEGATIVE) Ur Phencyclidine Scrn Negative (NEGATIVE) Ur Amphetamine Screen Negative (NEGATIVE) Urine MDMA Screen Negative (NEGATIVE) U Benzodiazepines Scrn Negative (NEGATIVE) U Cocaine Metab Screen Negative (NEGATIVE) U Marijuana (THC) Screen Negative (NEGATIVE) 02/10/17 02/10/17 Range/Units 15:00 15:00 WBC (4.5-12.0) X10-3/uL RBC (4.30-5.75) x10(6)uL Hgb (11.5-15.5) g/dL Hct (30.0-51.3) % MCV (80-96) fL MCH (27.7-33.6) pg MCHC (32.2-35.4) g/dL RDW (11.5-15.5) % Plt Count (125-369) X10(3)uL MPV (7.4-10.4) fL Neut % (Auto) (46-82) % Lymph % (Auto) (13-37) % [place] % (Auto) (4-12) % Eos % (Auto) (1.0-5.0) % Baso % (Auto) (0-2) % Neut # (Auto) (1.6-8.3) # Lymph # (Auto) (0.6-5.0) # [place] # (Auto) (0.0-1.3) # Eos # (Auto) (0.0-0.8) # Baso # (Auto) (0.0-0.2) # Sodium 138 (135-145) mmol/L Potassium 3.5 (3.5-5.3) mmol/L Chloride 103 (100-110) mmol/L Carbon Dioxide 28 (23-29) mmol/L BUN 15 (5-20) mg/dL Creatinine 1.1 (0.6-1.3) mg/dL Est Cr Clr Drug Dosing 123.76 mL/min Estimated GFR (MDRD) > 60 (>60) BUN/Creatinine Ratio 13.6 (9-20) Glucose 103 (80-116) mg/dL Calcium 9.5 (8.6-10.2) mg/dL Creatine Kinase 112 (60-160) IU/L Troponin I < 0.01 L (0.02-0.06) NG/ML Urine Color (YELLOW) Urine Appearance (CLEAR) Urine pH (5.0-6.5) Ur Specific [place] (1.010-1.025) Urine Protein (NEGATIVE) mg/dL Urine Glucose (UA) (NEGATIVE) mg/dL Urine Ketones (NEGATIVE) mg/dL Urine Occult Blood (NEGATIVE) Urine Nitrite (NEGATIVE) Urine Bilirubin (NEGATIVE) Urine Urobilinogen (NEGATIVE) mg/dL Ur Leukocyte Esterase (NEGATIVE) Urine RBC (0) Urine WBC (0) Ur Squamous Epith Cells (NS,R,O) Urine Bacteria (NS) Urine Opiates Screen (NEGATIVE) Ur Oxycodone Screen (NEGATIVE) Ur Propoxyphene Screen (NEGATIVE) Ur Barbituates Screen (NEGATIVE) Ur Tricyclics Screen (NEGATIVE) Ur Phencyclidine Scrn (NEGATIVE) Ur Amphetamine Screen (NEGATIVE) Urine MDMA Screen (NEGATIVE) U Benzodiazepines Scrn (NEGATIVE) U Cocaine Metab Screen (NEGATIVE) U Marijuana (THC) Screen (NEGATIVE) Departure - Departure Time of Disposition: 16:20 Disposition: Home, Self-Care 01 Condition: good Clinical Impression: Lower abdominal pain, unspecified - Discharge Information Referrals: Pelon Daniels MD [Primary Care Provider] - Forms: ED Department Discharge Additional Instructions: please f/u with your Dotor, please come back if your symptoms get worse acutely - My Orders Last 24 Hours: My Active Orders 02/10/17 14:47 EKG 12 Lead [EK] Routine 02/10/17 15:31 Abdomen 2V AP Flat Upright [CR] Stat - Assessment/Plan Last 24 Hours: My Active Orders 02/10/17 14:47 EKG 12 Lead [EK] Routine 02/10/17 15:31 Abdomen 2V AP Flat Upright [CR] Stat
[2017-02-10 16:26] VITALS: BP 128/87
--- NOTE | 2017-02-11 11:14 | CR ---
INDICATION: Abdominal pain. ABDOMEN: Four images of the abdomen were obtained in supine and upright projections, revealing a few small air-fluid levels in the area of the cecum, which are of questionable significance since no distention of the bowel is seen. No free air or finding to strongly suggest an obstructive process is identified. The minimal air-fluid levels are fairly nonspecific in the area of the cecum. This should be correlated clinically, however, as a process such as appendicitis , diverticulitis, cholecystitis, etc, could produce a paralytic ileus with this appearance. No mass lesions, organomegaly, or pathologic calcifications were identified. A very minimal dextroconcave rotoscoliosis of the lower lumbar spine is suggested. IMPRESSION: 1. Essentially nonspecific abdomen. A few small air-fluid levels in the right lower quadrant of questionable significance. 2. Minimal scoliosis. MTDD
== END 2017-02-10 16:24 | disposition home or self-care (01) ==
LOC: FB.ED 14:23
DX: R10.31 Right lower quadrant pain (principal); I10 Essential (primary) hypertension; F41.9 Anxiety disorder, unspecified; F32.9 Major depressive disorder, single episode, unspecified; Z79.899 Other long term (current) drug therapy; Z87.891 Personal history of nicotine dependence
CPT/HCPCS: 36415; 74020; 80048; 80305; 81001; 82550; 84484; 85025; 93005; 99284

== ENCOUNTER 2017-03-01 02:22 | Emergency (ER) | payer BC ==
[2017-03-01] MEDS ORDERED: LORazepam 2 MG/ML MDV IM ONE (02:29)
[2017-03-01] MEDS ORDERED: LORazepam 2 MG/ML MDV IM PRN (02:51)
[2017-03-01 07:01] VITALS: BP 134/72
--- NOTE | 2017-03-01 07:34 | PCM.SN ---
- Free Text/Narrative Note: Toby Ace was observed in the [facility] ED for over 5 hours, did not sleep, but seemed to clinically improve after oral Ativan ordered per Dr. Cotton. There was no observed hyperactivity, restlessness, confabulation, hallucinations or delusions. His VS were stable. He dumped a voided specimen when a Drug Screen was ordered. His clinical exam is stable. I discussed case with grandmother who will take him to her house to sleep. Prior attempts at drug treatment intervention have been unsuccessful. A daughter is coming later this month who may provide some assistance. His prognosis is poor without CD intervention. He is discharged from the ED on no meds.
--- NOTE | 2017-03-01 13:04 | ER ---
DATE SEEN: 03/01/2017 REASON FOR VISIT: Anxiety. HISTORY OF PRESENT ILLNESS: This is a 26-year-old male who was brought in by the ambulance after he complained that he was having a stroke. In the emergency room, he complains that he cannot feel his pulse, he cannot feel his legs or arms. He is extremely anxious, agitated, and cannot settle down. He admits to have taken 1 gram of meth tonight. He has a history of polysubstance abuse. He denies any suicidal ideation. No headache, nausea, or vomiting. He does complain of paranoia, but denies any suicidal thoughts or hallucinations. REVIEW OF SYSTEMS: There was no reported seizure, chest pain, or shortness of breath. No fever. PAST MEDICAL HISTORY: 1. Polysubstance abuse. 2. History of hematemesis. SOCIAL HISTORY: He is single. He is a former smoker. He does accept to using drugs. FAMILY HISTORY: His dad committed suicide. His mother from a traffic accident. PHYSICAL EXAMINATION: GENERAL: He is not in any cardiopulmonary distress. VITAL SIGNS: His initial blood pressure is 150 systolic. He is otherwise afebrile. Respiratory rate is 20, oxygenation 98% on room air. ENT: Negative. NECK: Supple. MENTAL STATUS: Pale, anxious, disoriented, delusional but exhibited no signs of self harm or homicidal thoughts. LABORATORY DATA: None. IMPRESSION: 1. Methamphetamine use. 2. Anxiety. PLAN: I called the Poison Board. They advised to use lorazepam liberally. I ordered 2 mg IM. The patient initially declined and was difficult to manage; however, he did finally accept 2 mg IM. He was stable enough to go home at around 0730 hours in the morning. /[id number] CRISTOBAL/ESTRADAL
== END 2017-03-01 07:25 | disposition home or self-care (01) ==
LOC: FB.ED 02:22
DX: F15.980 Other stimulant use, unspecified with stimulant-induced anxiety disorder (principal); Z87.891 Personal history of nicotine dependence
CPT/HCPCS: 96372; 99283; J2060

== ENCOUNTER 2017-03-02 01:01 | Emergency (ER) | payer BC ==
[2017-03-02] MEDS ORDERED: LORazepam 1 MG Tab PO ONE (01:38)
[2017-03-02] MEDS ORDERED: LORazepam 1 MG Tab ONE (01:38)
[2017-03-02] MEDS ORDERED: LORazepam 1 MG Tab PO PRN (01:50)
[2017-03-02 03:06] VITALS: BP 141/99
--- NOTE | 2017-03-02 05:00 | ER ---
DATE SEEN: 03/02/2017 CHIEF COMPLAINT: Anxiety. HISTORY OF PRESENT ILLNESS: A 26-year-old male, being brought in by the grandmother with complaints of possible stroke or blood clots. Symptoms have been there since yesterday when I saw him for meth use. He is very anxious and feels that his feet cannot support him and there is a possibility that he has a blood clot, especially on the right one, it feels colder than the other one. REVIEW OF SYSTEMS: He denies any suicidal ideation. No headaches. No shortness of breath. No fever or chills. PAST MEDICAL HISTORY: Drug abuse, anxiety, panic attacks. PHYSICAL EXAMINATION: VITAL SIGNS: Temperature is normal. Blood pressure 158/102. ENT negative. CHEST: Clear. ABDOMEN: Soft. EXTREMITIES: No edema. SKIN: No pallor or jaundice. MENTAL STATUS: Very anxious, delusional, restless. No signs of psychosis. IMPRESSION: 1. Anxiety attack. 2. Drug use. PLAN: 1. Lorazepam 1 mg b.i.d. p.r.n. 2. Diazepam 10 mg IM once. FOLLOWUP: Follow up in the office tomorrow or sooner if needed. Return with any worsening symptoms. /[id number] CRISTOBAL/CHRISTIAN
== END 2017-03-02 02:23 | disposition home or self-care (01) ==
LOC: FB.ED 01:01
DX: F41.9 Anxiety disorder, unspecified (principal); F19.90 Other psychoactive substance use, unspecified, uncomplicated
CPT/HCPCS: 96372; 99283; A9270; J3360

== ENCOUNTER 2017-04-02 17:43 | Emergency (ER) | payer BC, MEDICAID ==
[2017-04-02] MEDS ORDERED: Sodium Chloride 0.9% 1,000 ML IV ONE (18:27)
== END 2017-04-02 18:11 | disposition left against medical advice (07) ==
LOC: FB.ED 17:43
DX: Z53.21 Procedure and treatment not carried out due to patient leaving prior to being seen by health care provider (principal)
CPT/HCPCS: 99283

== ENCOUNTER 2017-04-02 20:44 | Emergency (ER) | payer BC, MEDICAID ==
[2017-04-02] MEDS ORDERED: cloNIDine 0.1 MG Tab PO ONE (21:24)
[2017-04-02 22:53] VITALS: BP 195/109
--- NOTE | 2017-04-02 23:28 | EDM.PDOC ---
ED HPI GENERAL MEDICAL PROBLEM - General Chief Complaint: Headache Stated Complaint: LOWER ABD PAIN HBP Time Seen by Provider: 04/02/17 21:15 Source of Information: Reports: Patient, Family History Limitations: Reports: Uncooperative - History of Present Illness INITIAL COMMENTS - FREE TEXT/NARRATIVE: 26 years old w m with a h/o amphetamin and other styreet drug abuse, walked into the ed earlier but worked ot right away and was going to . From the he came back to the ed because the was not able to "take care of him" Now, he come with his aunt to the c/o worst headache ever and abdominal pain as well. 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 Pt denies any other acute medical issues. Onset: Today Onset Date: 04/02/17 Onset Time: 07:00 Duration: Hour(s):, Intermittent Location: Reports: Head Quality: Reports: Throbbing Improves with: Reports: None Worsens with: Reports: None Associated Symptoms: Reports: No Other Symptoms Lower Abdomen Pain Score (Numeric/FACES): 10 Headache Pain Score (Numeric/FACES): 8 - Related Data Allergies Allergy/AdvReac Type Severity Reaction Status Date / Time No Known Allergies Allergy Verified 03/02/17 03:02 Home Meds: Home Meds FLUoxetine [PROzac] 40 mg PO DAILY 02/29/16 [History] Omeprazole 20 mg PO DAILY 01/13/17 [History] Propranolol HCl [Inderal LA] 60 mg PO DAILY 03/02/17 [History] Past Medical History - Past Health History Medical/Surgical History: Denies Medical/Surgical History HEENT History: Reports: Impaired Vision Cardiovascular History: Reports: Heart Murmur, Hypertension, Other (See Below) Other Cardiovascular History: states has occ PVC's.; states that he was diagnosed having heart valve prolapse; LBBB Respiratory History: Reports: None Gastrointestinal History: Reports: Other (See Below) Other Gastrointestinal History: lower abd pain on off x 2 month Genitourinary History: Reports: None Musculoskeletal History: Reports: None Neurological History: Reports: None Psychiatric History: Reports: Addiction, Anxiety, Depression, Panic Attack, Psych Hospitalization(s) Other Psychiatric History: hx meth addiction Endocrine/Metabolic History: Reports: None Hematologic History: Reports: None Immunologic History: Reports: None Oncologic (Cancer) History: Reports: None Dermatologic History: Reports: Other (See Below) Other Dermatologic History: acne - Infectious Disease History Infectious Disease History: Reports: Chicken Pox - Past Surgical History Head Surgeries/Procedures: Reports: None Social & Family History - Family History Family Medical History: Noncontributory - Tobacco Use Smoking Status *Q: Never Smoker Years of Tobacco use: 5 Packs/Tins Daily: 0.5 Used Tobacco, but Quit: Yes Month Tobacco Last Used: ONE YEAR AGO Second Hand Smoke Exposure: No - Caffeine Use Caffeine Use: Reports: None - Recreational Drug Use Recreational Drug Use: Yes Drug Use in Last 12 Months: Yes Recreational Drug Type: Reports: Methamphetamine, Other (see below) Other Recreational Drug Type: adderal Recreational Drug Use Frequency: Daily Recreational Drug Last Use: 01/2017 ED ROS GENERAL - Review of Systems Review Of Systems: See Below Constitutional: Reports: No Symptoms HEENT: Reports: Other (H/A) Respiratory: Reports: No Symptoms Cardiovascular: Reports: No Symptoms Endocrine: Reports: No Symptoms GI/Abdominal: Reports: Abdominal Pain : Reports: No Symptoms Musculoskeletal: Reports: No Symptoms Skin: Reports: No Symptoms Neurological: Reports: No Symptoms Psychiatric: Reports: No Symptoms Hematologic/Lymphatic: Reports: No Symptoms Immunologic: Reports: No Symptoms - Physical Exam Exam: See Below Exam Limited By: Uncooperative General Appearance: Alert, WD/WN, No Apparent Distress Eye Exam: Bilateral Eye: Normal Inspection Ears: Normal External Exam Nose: Normal Inspection Throat/Mouth: Normal Inspection Head Exam: Atraumatic, Normocephalic Neck: Normal Inspection, Supple Respiratory/Chest: No Respiratory Distress, Lungs Clear, Normal Breath Sounds Cardiovascular: Normal Peripheral Pulses, Regular Rate, Rhythm GI/Abdominal: Tender (periumbilical) (Male) Exam: Deferred Rectal (Males) Exam: Deferred Neuro Exam (Abbreviated): Alert, Oriented, CN II-XII Intact Back Exam: Normal Inspection, Full Range of Motion Extremities: Normal Inspection, Normal Range of Motion, Non-Tender Psychiatric: Other (pt punched the wall in the ed.) Skin Exam: Warm, Dry, Intact, Normal Color, No Rash Course - Vital Signs Text/Narrative:: 26 years old w m with a h/o amphetamin and other styreet drug abuse, walked into the ed earlier but worked ot right away and was going to . From the he came back to the ed because the UC was not able to "take care of him" Now, he come with his aunt to the c/o worst headache ever and abdominal pain as well. 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 Pt denies any other acute medical issues. Pt refused to give urine. PE: WDWN w m in no acute discomfort. Pt was ambulating well in the ed Labs: CBC was nl but HGB was 17.4 BMP was nl, Gluc was 127 Py refused to give urine, was drinking water. Imaging: CT head NAD. KUB: Constipation Impression: Constipation, Tension Headache. Htn, H/O IVDA Amphetamin abuse. Pt signed out AMP: Refused to give urine, did not want to wait to be officially discharged. Last Recorded V/S: Last Vital Signs Temp 36.9 C 04/02/17 21:15 Pulse 62 04/02/17 22:52 Resp 16 04/02/17 22:52 BP 195/109 H 04/02/17 22:52 Pulse Ox 99 04/02/17 22:52 - Orders/Labs/Meds Orders: Active Orders 24 hr Category Date Time Status Head wo Cont [CT] Stat Exams 04/02/17 20:55 Taken KUB [Abdomen 1V Flat] [CR] Stat Exams 04/02/17 21:23 Taken DRUG SCREEN, URINE ALERE [URCHEM] Stat Lab 04/02/17 20:55 Uncollected UA W/MICROSCOPIC [URIN] Stat Lab 04/02/17 20:55 Uncollected Labs: Laboratory Tests 04/02/17 04/02/17 Range/Units 21:05 21:05 WBC 9.1 (4.5-12.0) X10-3/uL RBC 5.55 (4.30-5.75) x10(6)uL Hgb 17.8 H (11.5-15.5) g/dL Hct 52.2 H (30.0-51.3) % MCV 94.1 (80-96) fL MCH 32.0 (27.7-33.6) pg MCHC 34.1 (32.2-35.4) g/dL RDW 11.7 (11.5-15.5) % Plt Count 215 (125-369) X10(3)uL MPV 9.3 (7.4-10.4) fL Neut % (Auto) 62.7 (46-82) % Lymph % (Auto) 25.2 (13-37) % [place] % (Auto) 9.0 (4-12) % Eos % (Auto) 3 (1.0-5.0) % Baso % (Auto) 0 (0-2) % Neut # (Auto) 5.8 (1.6-8.3) # Lymph # (Auto) 2.3 (0.6-5.0) # [place] # (Auto) 0.8 (0.0-1.3) # Eos # (Auto) 0.2 (0.0-0.8) # Baso # (Auto) 0.0 (0.0-0.2) # Sodium 141 (135-145) mmol/L Potassium 4.1 (3.5-5.3) mmol/L Chloride 108 D (100-110) mmol/L Carbon Dioxide 26 (23-29) mmol/L BUN 14 (5-20) mg/dL Creatinine 1.2 (0.6-1.3) mg/dL Est Cr Clr Drug Dosing TNP Estimated GFR (MDRD) > 60 (>60) BUN/Creatinine Ratio 11.7 (9-20) Glucose 127 H (80-116) mg/dL Calcium 9.5 (8.6-10.2) mg/dL Meds: Medications Discontinued Medications Generic Name Dose Route Start Last Admin Trade Name Freq PRN Reason Stop Dose Admin Clonidine HCl 0.1 mg 04/02/17 21:24 04/02/17 21:30 Catapres PO 04/02/17 21:25 0.1 mg ONETIME ONE Administration Departure - Departure Time of Disposition: 23:37 Disposition: Against Medical Advice 07 Condition: Good Clinical Impression: Tension headache Constipation Qualifiers: Constipation type: slow transit constipation Qualified Code(s): K59.01 - Slow transit constipation - Discharge Information Referrals: Pelon Daniels MD [Primary Care Provider] - Forms: ED Department Discharge - My Orders Last 24 Hours: My Active Orders 04/02/17 20:55 Head wo Cont [CT] Stat DRUG SCREEN, URINE ALERE [URCHEM] Stat UA W/MICROSCOPIC [URIN] Stat 04/02/17 21:23 KUB [Abdomen 1V Flat] [CR] Stat - Assessment/Plan Last 24 Hours: My Active Orders 04/02/17 20:55 Head wo Cont [CT] Stat DRUG SCREEN, URINE ALERE [URCHEM] Stat UA W/MICROSCOPIC [URIN] Stat 04/02/17 21:23 KUB [Abdomen 1V Flat] [CR] Stat
--- NOTE | 2017-04-03 10:51 | CR ---
INDICATION: Abdominal pain. ABDOMEN: Two supine views of the abdomen 04/02/2017 were compared with 2016 and revealed grommets overlying the upper middle pelvis from clothing. The pattern of gas and feces is nonspecific visualized in the section. No organomegaly, mass lesions, or pathologic calcifications were suggested. A phlebolith is again noted in the right pelvis. IMPRESSION: Nonspecific abdomen. MTDD
== END 2017-04-02 23:23 | disposition left against medical advice (07) ==
LOC: FB.ED 20:44
DX: G44.209 Tension-type headache, unspecified, not intractable (principal); K59.01 Slow transit constipation; I10 Essential (primary) hypertension; F41.9 Anxiety disorder, unspecified; F32.9 Major depressive disorder, single episode, unspecified; Z79.899 Other long term (current) drug therapy
CPT/HCPCS: 36415; 70450; 74000; 80048; 85025; 99284; A9270

== ENCOUNTER 2017-05-17 18:23 | Emergency (ER) | payer BC, MEDICAID ==
[2017-05-17] MEDS ORDERED: Propranolol 40 MG Tab PO SCH (19:00)
[2017-05-17 19:23] LABS: ACETAMINOPHEN < 10 ug/mL (10-30)
[2017-05-17 19:39] VITALS: BP 168/108
--- NOTE | 2017-05-20 00:28 | ER ---
DATE SEEN: 05/17/2017 TIME SEEN: The patient was seen at 1845 hours. HISTORY: The patient presents today because he was shaky, he was panicky and anxious. He has had panic attacks before. He is with his grandmother, lives with his grandmother. The past medical history that I recall notes that he had seen his father kill his mother and since has been depressed and has come to live in [place] after this. Mother's family lived in [place]. His father was in detention and father killed himself same day after he killed his mother. In pursuing this history, HE HAS MANY OTHER other significant psychiatric issues. The patient has long-term use of amphetamines. Denied using this for the last month; however, after further discussion, he said he has had benefit and he had used methamphetamines approximately 12 hours ago, so story does change and known to be less than complete integrity with his other clinic visits and ER visits. He wants me to do something about the shaking he has. He has been prescribed metoprolol in the past. On 03/11/2017, the patient was noted to have anxiety attack without hyperactivity, confabulation, illusions, or delusions. He had a migraine on 03/02/2017. He was very anxious, he said his feet could not support himself. CAT scan was performed, which was negative. On 04/02/2017, he complained of headache and abdominal pain. CT of the head was performed. It is also documented as past medical history, mitral valve prolapse, left bundle branch block, and methamphetamine use as noted above. Head CT at that time was negative. He was advised he needs to get a urine specimen. The urine was collected and he poured the urine out in the toilet. CURRENT MEDICATIONS: 1. Propranolol 60 mg daily. 2. Prozac 40 mg daily. ALLERGIES: None. REVIEW OF SYSTEMS: Negative except for ataxia or shakiness and anxiety. He is here with his grandmother. Grandmother is not aware of some of his drug abuse and he does not want her to know his story about drug abuse. PHYSICAL EXAMINATION: VITAL SIGNS: Blood pressure 190/98 and blood pressure came down to 158/92, heart rate 72, at one time was up to 100, respirations 18, oxygen saturation 100%. Temperature is 36.6 degrees centigrade. HEENT: PERRLA intact. Pharynx without abnormality. NECK: Supple. No thyromegaly or masses. No bruits. LUNGS: Clear without rales, rhonchi, or wheezes. HEART: S1, S2. No murmur. ABDOMEN: Soft. No guarding. No abdominal discomfort. EXTREMITIES: Without abnormality. No tenderness. No suggestion sites of drug injection. He has mild tremor. NEURO: Cranial nerves 2 through 12 intact. Oriented x3. Gait intact. No dysmetria. No pronator drift. I did not perform a drug screen because he refused the last time. Aspirins, acetaminophen, ethyl alcohol were negative. Complete metabolic panel, bilirubin is 2.7. AST and ALT are normal. Alkaline phosphate low and troponin less than 0.01. Otherwise, complete metabolic panel is normal and the CBC is normal except for hemoglobin is elevated at 17.6. ASSESSMENT: 1. Chemical abuse. 2. Patient tremor secondary to chemical abuse. 3. Anxiety attack secondary to the above. Given 40 mg propranolol orally and advised that he needs to go home, and at some point, he needs to tell his grandmother about inappropriate drug use he has been battling with grandmother. I think she is aware of it, but quietly does not say very much. The patient dismissed to follow up with doctor in a week. Drug abuse. Tremor secondary to drug abuse and panic attack secondary to anxiety induced by his methamphetamine use. He denied at first and told me that he had used it 12 hours ago, but then he denies that he had not used drugs for a week. He is very manipulative and his outlook was not good in terms of his total health and longevity. /[id number] LEIDY/CHRISTIAN CABEZAS
== END 2017-05-17 20:02 | disposition home or self-care (01) ==
LOC: FB.ED 18:23
DX: F15.10 Other stimulant abuse, uncomplicated (principal); G25.1 Drug-induced tremor; F41.9 Anxiety disorder, unspecified; Z79.899 Other long term (current) drug therapy
CPT/HCPCS: 36415; 80053; 84484; 85025; 93005; 99284; A9270; G0480

== ENCOUNTER 2017-06-23 02:04 | Emergency (ER) | payer BC, MEDICAID ==
[2017-06-23] MEDS ORDERED: Sodium Chloride 0.9% 1,000 ML IV ONE (02:20)
[2017-06-23] MEDS ORDERED: cloNIDine 0.1 MG Tab PO ONE (03:13)
[2017-06-23 03:14] VITALS: BP 187/109
--- NOTE | 2017-06-23 03:37 | EDM.PDOC ---
ED HPI GENERAL MEDICAL PROBLEM - General Chief Complaint: General Stated Complaint: HEART CHECK Time Seen by Provider: 06/23/17 02:15 Source of Information: Reports: Patient, Family (Grandma) History Limitations: Reports: Uncooperative - History of Present Illness INITIAL COMMENTS - FREE TEXT/NARRATIVE: 27 y.o.w.isa was brought to the ed by his grandma because he is "high on drugs" He meets his friends daily to have "drug parties" his BP was 177/101. I have seen this pt in the past several times. In the past, Pt refused urinary drugs screens the ed, so nobody can proof he takes drugs. Pt refused to give a HPI. 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 Both of his parent's diseased, he has a younger brother in [place]. Onset: Unknown/Unsure Onset Date: 06/22/17 Onset Time: 09:00 Duration: Intermittent Location: Reports: Generalized - Related Data Allergies Allergy/AdvReac Type Severity Reaction Status Date / Time No Known Allergies Allergy Verified 06/23/17 07:40 Home Meds: Home Meds FLUoxetine [PROzac] 40 mg PO DAILY 02/29/16 [History] Propranolol HCl [Inderal LA] 60 mg PO DAILY 03/02/17 [History] Past Medical History - Past Health History Medical/Surgical History: Denies Medical/Surgical History HEENT History: Reports: Impaired Vision Cardiovascular History: Reports: Heart Murmur, Hypertension, Other (See Below) Other Cardiovascular History: states has occ PVC's.; states that he was diagnosed having heart valve prolapse; LBBB Respiratory History: Reports: None Gastrointestinal History: Reports: Other (See Below) Other Gastrointestinal History: lower abd pain on off x 2 month Genitourinary History: Reports: None Musculoskeletal History: Reports: None Neurological History: Reports: None Psychiatric History: Reports: Addiction, Anxiety, Depression, Panic Attack, Psych Hospitalization(s) Other Psychiatric History: Meth and Tobacco Addiction Endocrine/Metabolic History: Reports: None Hematologic History: Reports: None Immunologic History: Reports: None Oncologic (Cancer) History: Reports: None Dermatologic History: Reports: Other (See Below) Other Dermatologic History: acne - Infectious Disease History Infectious Disease History: Reports: Chicken Pox - Past Surgical History Head Surgeries/Procedures: Reports: None Social & Family History - Family History Family Medical History: Noncontributory - Tobacco Use Smoking Status *Q: Current Every Day Smoker Years of Tobacco use: 7 Packs/Tins Daily: 0.5 Used Tobacco, but Quit: Yes Month Tobacco Last Used: ONE YEAR AGO Second Hand Smoke Exposure: No - Caffeine Use Caffeine Use: Reports: Energy Drinks, Soda - Recreational Drug Use Recreational Drug Use: Yes Drug Use in Last 12 Months: Yes Recreational Drug Type: Reports: Amphetamines (Speed) Other Recreational Drug Type: Stated he used a "high power stimulant" 24 hours ago, then stated it had been a month since the last time he used. Recreational Drug Use Frequency: Daily Recreational Drug Last Use: 629 today ED ROS GENERAL - Review of Systems Review Of Systems: Unable To Obtain (uncooperative) ED EXAM, GENERAL - Physical Exam Exam: See Below Exam Limited By: Other (apperas to be on drugs) General Appearance: Alert, WD/WN, No Apparent Distress Eye Exam: Bilateral Eye: Normal Inspection Ears: Normal External Exam Ear Exam: Bilateral Ear: Auricle Normal Nose: Normal Inspection Throat/Mouth: Normal Inspection Head: Atraumatic, Normocephalic Neck: Normal Inspection, Supple, Non-Tender Respiratory/Chest: No Respiratory Distress, Lungs Clear, Normal Breath Sounds Cardiovascular: Normal Peripheral Pulses, Regular Rate, Rhythm Peripheral Pulses: 1+: Radial (L), Radial (R) GI/Abdominal: Normal Bowel Sounds, Soft, Non-Tender (Male) Exam: Deferred Rectal (Males) Exam: Deferred Back Exam: Normal Inspection, Full Range of Motion Extremities: Normal Inspection, Normal Range of Motion, Non-Tender Neurological: Alert, CN II-XII Intact, Normal Gait Psychiatric: Normal Affect, Depressed Mood Skin Exam: Warm, Dry, Intact, Normal Color, No Rash Lymphatic: No Adenopathy Course - Vital Signs Text/Narrative:: 27 y.o.w.m was brought to the ed by his grandma because he is "high on drugs" He meets his friends daily to have "drug parties" his BP was 177/101. I have seen this pt in the past several times. In the past, Pt refused urinary drugs screens the ed, so nobody can proof he takes drugs. Pt refused to give a HPI. 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 Both of his parent's diseased, he has a younger brother in [place]. PE: Dry mucosal membrane, decr. skin turgor Labs: WBC 8.6, H/H 18.9/58.4 Na 134 reminder Labs were WNL. P refused U rine drug screen in order nobody can proof he takes drugs. Impression: Uncooperative, verbal abusive the nurse, refuses drug screen, HTN, dehydration Tx: Pt was offered clonidin 0.1 mg. He took a little bite out of it and put the reminder of the tablet in his pocket and left AMA Plan: left AMA with his grandmother Last Recorded V/S: Last Vital Signs Temp 36.7 C 06/23/17 02:15 Pulse 80 06/23/17 03:10 Resp 16 06/23/17 03:10 BP 187/109 H 06/23/17 03:15 Pulse Ox 99 06/23/17 03:10 - Orders/Labs/Meds Labs: Laboratory Tests 06/23/17 06/23/17 06/23/17 Range/Units 02:30 02:30 02:30 WBC 8.3 (4.5-12.0) X10-3/uL RBC 5.97 H (4.30-5.75) x10(6)uL Hgb 18.9 H (11.5-15.5) g/dL Hct 55.8 H (30.0-51.3) % MCV 93.5 (80-96) fL MCH 31.7 (27.7-33.6) pg MCHC 33.9 (32.2-35.4) g/dL RDW 11.9 (11.5-15.5) % Plt Count 230 (125-369) X10(3)uL MPV 9.5 (7.4-10.4) fL Neut % (Auto) 69.1 (46-82) % Lymph % (Auto) 21.7 (13-37) % Fleming % (Auto) 7.9 (4-12) % Eos % (Auto) 1 (1.0-5.0) % Baso % (Auto) 0 (0-2) % Neut # (Auto) 5.7 (1.6-8.3) # Lymph # (Auto) 1.8 (0.6-5.0) # Fleming # (Auto) 0.7 (0.0-1.3) # Eos # (Auto) 0.1 (0.0-0.8) # Baso # (Auto) 0.0 (0.0-0.2) # Sodium 134 L (135-145) mmol/L Potassium 3.7 (3.5-5.3) mmol/L Chloride 100 (100-110) mmol/L Carbon Dioxide 24 (23-29) mmol/L BUN 14 (5-20) mg/dL Creatinine 1.1 (0.6-1.3) mg/dL Est Cr Clr Drug Dosing TNP Estimated GFR (MDRD) > 60 (>60) BUN/Creatinine Ratio 12.7 (9-20) Glucose 116 (80-116) mg/dL Calcium 9.7 (8.6-10.2) mg/dL Ethyl Alcohol < 0.01 (<0.01) % Meds: Medications Discontinued Medications Generic Name Dose Route Start Last Admin Trade Name Oscarq PRN Reason Stop Dose Admin Clonidine HCl 0.1 mg 06/23/17 03:13 06/23/17 03:15 Catapres PO 06/23/17 03:14 0.1 mg ONETIME ONE Administration Sodium Chloride 1,000 mls @ 999 mls/hr 06/23/17 02:20 06/23/17 02:45 Normal Saline IV 06/23/17 03:20 999 mls/hr .BOLUS ONE Administration Departure - Departure Time of Disposition: 03:30 Disposition: Against Medical Advice 07 Condition: Fair Clinical Impression: Non-compliance Hypertension Qualifiers: Hypertension type: other secondary hypertension Qualified Code(s): I15.8 - Other secondary hypertension - Discharge Information Referrals: Pelon Daniels MD [Primary Care Provider] - Forms: ED Department Discharge Additional Instructions: Pt refused w/u, drug screen, refuses treatment, violent towards the nurses
== END 2017-06-23 03:26 | disposition left against medical advice (07) ==
LOC: FB.ED 02:04
DX: I15.8 Other secondary hypertension (principal); E86.0 Dehydration; Z79.899 Other long term (current) drug therapy; F17.210 Nicotine dependence, cigarettes, uncomplicated; Z91.19 Patient's noncompliance with other medical treatment and regimen
CPT/HCPCS: 36415; 80048; 85025; 99283; A9270; G0480; J7040

== ENCOUNTER 2017-08-08 18:08 | Emergency (ER) | payer BC, MEDICAID ==
[2017-08-08 18:46] VITALS: BP 167/100
--- NOTE | 2017-08-10 09:32 | ER ---
DATE SEEN: 08/08/2017 TIME SEEN: The patient was seen 1655 hours. HISTORY OF PRESENT ILLNESS: This 27-year-old is known to use drugs extensively. Notes yesterday, he used methamphetamine per the nurse, but when asked about this he said "Oh no, he used Zo-Fast, a stimulant." Also used Vyvanse 3 days ago. He feels spaced out. He feels lightheaded and has some chest wall discomfort anteriorly. He feels unsteady. "He has never felt this way in his heart before." (This is not true because I have seen him on many occasions where he has had chest pain and multiple drug abuse episodes.) Feels slightly light headed and he complains, "I have never been able to get into a whip operator because it takes 3 months to get in to a whip operator." The patient notes he has abdominal discomfort. No changes in his bowels. No diarrhea, constipation, blood in the stool or black tarry stool. He denies shortness of breath. He denies headache, compromise in his vision, or paresis/weakness in the upper and lower extremities. He denies difficulty passing urine. REVIEW OF SYSTEMS: Otherwise negative. PSYCHIATRIC: Depression. He has long history of social issues. Apparently, his mother was killed by his father in front of him in [place], and he has been raised by his grandmother, and drugs have been his `out' in life as opposed to maintaining his way to solve his problem/recreation. PHYSICAL EXAMINATION: VITAL SIGNS: Blood pressure tonight is 167/100, heart rate is 92, respirations 18, oxygen saturation 100%, and temperature is 36.6 degrees centigrade. GENERAL: The patient is thinner than he used to be, less muscle mass noted. He has more asthenic features, less subcutaneous tissue to his face and his upper and lower body. He maintains he is still lifting weights. HEENT: PERRLA intact. Eyegrounds are normal in appearance. Conjugate eye gaze. No nystagmus noted. Hearing is good. TMs negative. Pharynx without abnormality. Dry mucosa. NECK: No bruits. No masses. No irregularity. No cervical adenopathy. LUNGS: Clear without rales, rhonchi, or wheezes. HEART: S1, S2. No irregular rate and rhythm. Has sinus tachycardia, occasionally 100, when he is standing up, otherwise it is in the 90s. CHEST WALL: He is reluctant to have me touch the chest wall. ABDOMEN: When I went to examine his abdomen, he pushed my hands away and refused to have me examine them because it "hurts too much". He is asthenic. Bowel sounds are increased. No CVA percussion tenderness. He notes he has chest wall, abdominal generalized discomfort. EXTREMITIES: Lower extremities, I was unable to examine his muscles because he stated they hurt also. PELVIC: Also, he has groin discomfort, bilateral. No evidence for hernia on inspection. GENITALIA: Not examined. RECTAL: Not performed. NEUROLOGIC: Deep tendon reflexes hypoactive. Cranial nerves 2 through 12 intact. The patient is dysphoric. He is semi-somnolent. His pupils are pinpoint. ASSESSMENT: Side effect from medication/drug abuse. Tests were ordered. He decided that he was going to go home, he did not want to stay for the test. This is not unusual for Toby to control what is done and not done in the ER. He could have myocardial ischemia, but I was unable to determine this as no EKG was done, and he refused to have any EKG and have the blood test check. Follow up with doctor this week. DIAGNOSES: Chest wall discomfort, abdominal wall discomfort, abdominal discomfort secondary to drug abuse. Dehydration. Lightheadedness and dizziness secondary to dehydration. Mild elevation in blood pressure secondary to dehydration and also the stimulants he is using. /[id number] LEIDY/CHRISTIAN
== END 2017-08-08 19:33 | disposition home or self-care (01) ==
LOC: FB.ED 18:08
DX: E86.0 Dehydration (principal); R07.89 Other chest pain; R10.9 Unspecified abdominal pain
CPT/HCPCS: 99282